=== PATIENT | male | born 1990 | race Caucasian/White ===

== ENCOUNTER 2019-12-03 15:21 | Outpatient (REF) | payer MEDICAID, SELFPAY | END 2019-12-03 15:22 | disposition home or self-care (01) | LOC: HO.LAB 15:21 | PROVIDERS: Visit Provider Internal Medicine | DX: Z20.828 Contact with and (suspected) exposure to other viral communicable diseases (principal) | CPT/HCPCS: 87635 ==

== ENCOUNTER 2019-12-21 14:14 | Outpatient (REF) | payer MEDICAID, SELFPAY | END 2019-12-21 14:15 | disposition home or self-care (01) | LOC: HO.LAB 14:14 | PROVIDERS: Visit Provider Internal Medicine | DX: Z20.828 Contact with and (suspected) exposure to other viral communicable diseases (principal) | CPT/HCPCS: C9803; U0003 ==

== ENCOUNTER 2024-03-05 16:58 | Emergency (ER) | payer OTHER, MEDICAID, SELFPAY ==
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
[2024-03-05 17:05] VITALS: BP 132/80; BP 143/82; PULSE 102; PULSE 130; RESP 18; TEMP 36.6; O2SAT 98; O2SAT 99; BMI 24.7
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
[2024-03-05] MEDS: Ibuprofen 600 MG TABLET PO (19:49)
[2024-03-05] MEDS: Diphth,Pertus(ACell),Tet Adult 0.5 ML SYRINGE IM (19:49)
[2024-03-05 19:55] VITALS: BP 132/80; PULSE 102; RESP 18; TEMP 36.6; O2SAT 98
== END 2024-03-05 19:55 | disposition home or self-care (01) ==
PROVIDERS: Emergency Provider Internal Medicine
DX: S16.1XXA Strain of muscle, fascia and tendon at neck level, initial encounter (principal); S80.211A Abrasion, right knee, initial encounter; V43.52XA Car driver injured in collision with other type car in traffic accident, initial encounter; M25.562 Pain in left knee; M25.561 Pain in right knee; W22.11XA Striking against or struck by driver side automobile airbag, initial encounter; Y93.89 Activity, other specified; Y92.414 Local residential or business street as the place of occurrence of the external cause; Y99.9 Unspecified external cause status; Z23 Encounter for immunization
CPT/HCPCS: 72125; 90471; 90715; 99283; 99284

== ENCOUNTER → 2024-03-05 17:21 | Outpatient (BNV) | payer OTHER, MEDICAID, SELFPAY | PROVIDERS: Emergency Provider Internal Medicine; Visit Provider Radiology Diagnostic Radiology | DX: M54.2 Cervicalgia (principal); V89.2XXA Person injured in unspecified motor-vehicle accident, traffic, initial encounter | CPT/HCPCS: 72125 ==

== ENCOUNTER 2024-03-11 10:51 | Outpatient (AMB) | payer OTHER, SELFPAY ==
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
[2024-03-11 11:12] VITALS: BP 110/70; PULSE 72; O2SAT 98
--- OUTSIDE RECORDS SUMMARY | 2024-03-11 12:55 | XMS_ITS | Encounter Summary ---
Author Organization [facility] Address [address] [place] [address] Phone Care Team Providers Care Monkey Trainer Name Role Phone Malachi Aquino MD Primary Care Provider [phone] Encounter Details Date Type Department Care Team (Late st Contact Info) Description 10/03/2016 Conversion Encounter [facility] [place] [address] [place] [address] Social History Tobacco Use Types Packs/Day Years Used Date Smoking Tobacco: Never Assessed Sex and Gender Information Value Date Recorded Sex Assigned at Not on file Legal Sex Male 4:30 PM EDT Gender Identity Not on file Sexual Orientation Not on file documented as of this encounter Plan of Treatment Not on file documented as of this encounter Visit Diagnoses Not on filedocumented in this encounter Care Teams Monkey Trainer Relationship Specialty Start Date End Date Malachi Aquino MD [address] [place] [address] PCP - General 09/27/16 07/24/22 documented as of this encounter
--- OUTSIDE RECORDS SUMMARY | 2024-03-11 12:55 | XMS_ITS | Clinical Summary ---
Author Organization [place] [address] [address] [facility] Building Address [address] [place] [phone] Phone Care Team Providers Care Wireless Technician Name Role Phone Linette Grant DO Primary Care Provider [phone] Encounters Date Type Department Care Team Description 03/11/2024 Telephone Internal Medicine - [address] [phone] Linette Grant DO information needed from Last 3 Months Social History Tobacco Use Types Packs/Day Years Used Date Smoking Tobacco: Never Assessed Sex and Gender Information Value Date Recorded Sex Assigned at Not on file Gender Identity Not on file Sexual Orientation Not on file Job Start Date Occupation Industry Not on file Not on file Not on file Plan of Treatment Upcoming Encounters Date Type Department Care Team (Late st Contact Info) Description 03/11/2024 2:15 PM EST Office Visit Internal Medicine - [address] [phone] Jun East MD [address] [place] [address] 08/27/2024 3:30 PM EDT Office Visit Internal Medicine - [address] [place] [phone] Linette Grant DO [address] [place] [address] Health Maintenance Due Date Last Done Comments DTaP,Tdap,and Td Vaccines (1 - Tdap) 2008 Hepatitis B Vaccines (1 of 3 - 19+ 3-dose series) 2008 COVID-19 Vaccine ( - 2023-2 5 season) 2023 Influenza Vaccine (#1) 2023 HIB Vaccines Aged Out No longer eligi ble based on patient's age to complete this topic HPV Vaccines Aged Out No longer eligi ble based on patient's age to complete this topic Hepatitis A Vaccines Aged Out No long er eligible based on patient's age to complete this topic IPV Vaccines Aged Out No longer eligi ble based on patient's age to complete this topic MMR Vaccines Aged Out No longer eligi ble based on patient's age to complete this topic Meningococcal ACWY Vaccine Aged Out N o longer eligible based on patient's age to complete this topic Pneumococcal Vaccine: Pediat rics (0 to 5 Years) and At-Risk Patients (6 to 64 Years) Aged Out No longer eligible b ased on patient's age to complete this topic RSV Immunization Patients Un marisa 20 months Aged Out No longer eligible b ased on patient's age to complete this topic Varicella Vaccines Aged Out No longer eligible based on patient's age to complete this topic Care Teams Wireless Technician Relationship Specialty Start Date End Date Linette Grant DO [address] [facility] [place] [address] PCP - General Internal Medicine 03/11/24
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
--- OUTSIDE RECORDS SUMMARY | 2024-03-11 12:55 | XMS_ITS | Clinical Summary ---
Author Organization [facility] Address [address] [place] [address] Phone Care Team Providers Care Senior Application Security Consultant Name Role Phone Unavailable Primary Care Provider Unavailabl e Immunizations Name Administration Dates Next Due DTP 11/16/1994, 2,05/17/1990,02/22,1989 Hep B, ped/adol 11/30/2002,01/26/2002,12/22/2001 Hib (PRP-T) 12/23/1990 IPV 11/16/1994,03/19/1991,1989 Influenza, intranasal, trivalent 12/11/2009 MMR 10/31/1994,12/23/1990 Meningococcal Conj (Menactra) MCV4P 05/05/2007 Td (adult) (MBL), 2 Lf tetan us toxoid, PF, adsorbed 12/22/2001 Tdap 05/05/2007 Family History Relation Name Status Comments Brother 1 Alive Brother: Alive and well, Alive and well Brother 2 Alive Brother: Alive and well, Alive and well Father Alive Father: Alive a nd well Mother Alive Mother: Alive a nd well Other Family history of Diabetes mellitus Social History Tobacco Use Types Packs/Day Years Used Date Smoking Tobacco: Never Assessed Sex and Gender Information Value Date Recorded Sex Assigned at Not on file Legal Sex Male 4:30 PM EDT Gender Identity Not on file Sexual Orientation Not on file Last Filed Vital Signs Vital Sign Reading Time Taken Comments Blood Pressure 102/58 12/11/2009 12:00 AM EDT Pulse - - Temperature 36.4 ??C (97.6 ??F) 09/12/2009 12:00 AM E DT Respiratory Rate - - Oxygen Saturation - - Inhaled Oxygen Concentration - - Weight 58.1 kg (128 lb) 12/11/2009 12:00 AM EDT Height 175.3 cm (5' 9 ) 12/11/2009 12:00 AM EDT Body Mass Index 18.9 12/11/2009 12:00 AM EDT Plan of Treatment Health Maintenance Due Date Last Done Comments Varicella Vaccines (1 of 2 - 13+ 2-dose series) 01/08/2010 DTaP,Tdap,and Td Vaccines (7 - Td or Tdap) 05/04/2017 05/05/2007, 12/22/2001, 11/16/1994, Additional history exists Influenza Vaccines (#1) 2023 12/11/2009 COVID-19 Vaccine ( - 2023- season) 2023 HIB Vaccines Aged Out 12/23/1990 No longer eligi ble based on patient's age to complete this topic MMR Vaccines Completed 10/31/1994, 12/23/1990 IPV Vaccines Completed 11/16/1994, 02/19, 1989 Hepatitis B Vaccines Completed 11/30/2002, 01/26/2002, 12/22/2001 Meningococcal Vaccine Completed 05/05/2007 HPV Vaccines Aged Out No longer eligi ble based on patient's age to complete this topic Hepatitis A Vaccines Aged Out No long er eligible based on patient's age to complete this topic Men B Vaccine Aged Out No longer elig ible based on patient's age to complete this topic Pneumococcal Vaccine Aged Out No long er eligible based on patient's age to complete this topic
== END 2024-03-11 12:24 | disposition home or self-care (01) ==
PROVIDERS: Visit Provider Nurse Practitioner Family
DX: M25.50 Pain in unspecified joint (principal); V89.2XXA Person injured in unspecified motor-vehicle accident, traffic, initial encounter